=== PATIENT | male | born 1950 | race Caucasian/White ===

== ENCOUNTER 2016-11-18 08:00 | Outpatient (CLI) | payer MEDICARE, BC, OTHER | END 2016-11-18 08:01 | disposition home or self-care (01) | DX: E78.5 Hyperlipidemia, unspecified (principal); Z20.828 Contact with and (suspected) exposure to other viral communicable diseases ==

== ENCOUNTER 2018-03-01 08:27 | Day surgery (SDC) | payer MEDICARE, BC, OTHER ==
[2018-03-01] MEDS: LACTATED RINGERS 1,000 ML IV ONE (09:03)
[2018-03-01 10:30] VITALS: BP 103/67
[2018-03-01] MEDS ORDERED: MIDAZOLAM 2 MG/2 ML VIAL IVP ONE (10:30)
[2018-03-01] MEDS ORDERED: fentaNYL 250 MCG/5 ML VIAL IVP ONE (10:30)
== END 2018-03-01 08:28 | disposition home or self-care (01) ==
LOC: SDS 08:27
PROVIDERS: ATTEND Surgery
PROC: 0DBL8ZX Excision of Transverse Colon, Via Natural or Artificial Opening Endoscopic, Diagnostic (ICD-10-PCS; 2018-03-01)
PROC: 0DBP8ZX Excision of Rectum, Via Natural or Artificial Opening Endoscopic, Diagnostic (ICD-10-PCS; principal; 2018-03-01 09:45)
DX: Z12.11 Encounter for screening for malignant neoplasm of colon (principal); D12.3 Benign neoplasm of transverse colon; K62.1 Rectal polyp; J45.909 Unspecified asthma, uncomplicated; E78.5 Hyperlipidemia, unspecified; Z87.891 Personal history of nicotine dependence
CPT/HCPCS: 45380; J3010; J7120; 88305

== ENCOUNTER 2018-04-18 11:37 | Outpatient (CLI) | payer MEDICARE, BC, OTHER ==
--- NOTE | 2018-04-18 12:29 | XRAY Report ---
TWO VIEW CHEST: 04/18/2018 CLINICAL INDICATION: Cough. COMPARISON: 02/17/2008. FINDINGS: Frontal and lateral views of the chest demonstrate a normal cardiac silhouette. The lungs are clear. No effusion or pneumothorax is present. IMPRESSION: NORMAL CHEST, UNCHANGED. TD: 04/18/2018 12:00
== END 2018-04-18 11:38 | disposition home or self-care (01) ==
LOC: DI 11:37
PROVIDERS: ATTEND Internal Medicine
DX: R05 Cough (principal)
CPT/HCPCS: 71046

== ENCOUNTER 2020-01-12 10:43 | Emergency (ER) | payer MEDICARE, BC, OTHER ==
[2020-01-12] MEDS ORDERED: ONDANSETRON 4 MG/2 ML VIAL IVP STA (12:26)
[2020-01-12] MEDS ORDERED: KETOROLAC 30 MG/ML VIAL IVP STA (12:26)
[2020-01-12] MEDS ORDERED: HYDROmorphone 1 MG/ML SYRINGE IVP STA ×2 (12:26→14:57)
--- NOTE | 2020-01-12 12:29 | ED Physician Documentation ---
PD HPI HEENT - Stated complaint Stated Complaint: HEAD,NECK,LT SHOULDER PX - Chief complaint Chief Complaint: Heent - History obtained from History obtained from: Patient - History of Present Illness Timing - onset: Other (4 days now he has had a swollen lymph node in the neck. He saw his primary care physician who put him on Keflex. Subsequent to that about 2 days ago he is developed severe bilateral posterior neck pain that is excruciating at rest and even worse with any motion. It is triggered by both flexion and extension as well as rotation in either direction. He is never had anything like this before. He denies fevers, chills, fatigue. Denies weakness, numbness, or tingling in the arms or legs.) Review of Systems Ten Systems: 10 systems reviewed and negative Constitutional: denies: Fever, Chills Cardiac: denies: Chest pain / pressure, Palpitations Respiratory: denies: Dyspnea, Cough GI: denies: Abdominal Pain, Nausea, Vomiting PD PAST MEDICAL HISTORY - Past Medical History Past Medical History: Yes Cardiovascular: Murmur Respiratory: Other Endocrine/Autoimmune: None GI: None : None HEENT: Chronic vision loss, Other Psych: Claustrophobia Musculoskeletal: Gout Derm: Other - Past Surgical History Past Surgical History: Yes General: Colonoscopy, Other - Present Medications Home Medications: Ambulatory Orders Medication Instructions Recorded Confirmed Timolol [Betimol] 1 drop EACHEYE DAILY 05/06/16 03/01/18 Cyclobenzaprine [Flexeril] 10 mg PO TID PRN #20 tablet 01/12/20 Fluticasone Propion/Salmeterol 1 each IH 01/12/20 [Wixela 100-50 Inhub] Hydrocodone/Acetaminophen 1 - 2 each PO Q6H PRN #20 tablet 01/12/20 [Hydrocodon-Acetaminophen 5-325] - Allergies Allergies/Adverse Reactions: Allergies Allergy/AdvReac Type Severity Reaction Status Date / Time No Known Drug Allergies Allergy Verified 01/12/20 10:51 - Social History Does the pt smoke?: No Smoking Status: Never smoker Does the pt drink ETOH?: Yes Does the pt have substance abuse?: No PD ED PE NORMAL - Vitals Vital signs reviewed: Yes - General General: Alert and oriented X 3, Other (He appears uncomfortable and cannot move his neck at all) - HEENT HEENT: PERRL, EOMI, Other (Mildly tender left anterior neck lymph node) - Neck Neck: Other (No midline spinal tenderness, he is tender over the left sternocleidomastoid) - Cardiac Cardiac: RRR, No murmur - Respiratory Respiratory: No respiratory distress, Clear bilaterally - Abdomen Abdomen: Non tender - Back Back: No CVA TTP, No spinal TTP - Derm Derm: Normal color, Warm and dry - Extremities Extremities: No edema, No calf tenderness / cord, Other (The patient has equal and normal Achilles and patellar reflexes bilaterally. Normal sensation in all areas of the legs. Patient denies saddle anesthesia. 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, No motor deficit, No sensory deficit, Normal speech Results - Vitals Vitals: Vital Signs - 24 hr 01/12/20 10:47 Temperature 37.1 C Heart Rate 77 Respiratory 18 Rate Blood Pressure 150/100 H O2 Saturation 98 Oxygen O2 Source Room air - Labs Labs: Laboratory Tests 01/12/20 01/12/20 01/12/20 12:48 12:48 12:48 WBC 10.7 RBC 4.40 L Hgb 13.8 L Hct 41.4 L MCV 94.1 H MCH 31.4 H MCHC 33.3 RDW 12.5 Plt Count 231 MPV 9.5 Neut # (Auto) 9.0 H Lymph # (Auto) 0.7 L [place] # (Auto) 0.8 Eos # (Auto) 0.1 Baso # (Auto) 0.0 Absolute Nucleated RBC 0.00 Nucleated RBC % 0.0 ESR 25 H Sodium 139 Potassium 4.0 Chloride 104 Carbon Dioxide 26 Anion Gap 9.0 BUN 12 Creatinine 0.7 Estimated GFR (MDRD) 111 Glucose 122 H Calcium 8.6 Total Bilirubin 1.5 H AST 44 H ALT 59 Alkaline Phosphatase 121 C-Reactive Protein 13.5 H Total Protein 7.4 Albumin 3.9 Globulin 3.5 Albumin/Globulin Ratio 1.1 Lipase 25 PD MEDICAL DECISION MAKING - ED course ED course: 69-year-old gentleman with what seems like a neck spasm. He did have significant improvement with meds here on reexamination he was thoroughly tender over the left sternocleidomastoid. We discussed a lumbar puncture but after discussion and risks edification patient declines which is not unreasonable from my perspective, the risk seems very low especially without fever etc. Departure - Departure Disposition: 01 Home, Self Care Clinical Impression: Neck muscle spasm Headache Qualifiers: Headache type: unspecified Headache chronicity pattern: acute headache Intractability: not intractable Qualified Code(s): R51 - Headache Condition: Good Record reviewed to determine appropriate education?: Yes Instructions: ED Cephalgia Unspecified, ED Spasm Neck No Injury Prescriptions: Cyclobenzaprine [Flexeril] 10 mg PO TID PRN #20 tablet PRN Reason: Spasms Hydrocodone/Acetaminophen [Hydrocodon-Acetaminophen 5-325] 1 - 2 each PO Q6H PRN #20 tablet PRN Reason: pain Comments: Call your doctor to arrange a follow-up appointment, make the next available appointment. In the interim, return anytime if worse or if new symptoms develop. Talk with Dr Erickson about physical therapy.
[2020-01-12 13:05] LABS: BASOPHILS % (AUTO) 0.4 %; EOSINOPHILS # (AUTO) 0.1 10^3/uL (0.0-0.7); EOSINOPHILS % (AUTO) 0.5 %; HGB - HEMOGLOBIN 13.8 g/dL (14.0-18.0); LYMPHOCYTES # (AUTO) 0.7 10^3/uL (1.5-3.5); LYMPHOCYTES % (AUTO) 6.7 %; MEAN CORPUSCULAR HEMOGLOBIN 31.4 pg (27.0-31.0); MEAN CORPUSCULAR HGB CONC 33.3 g/dL (32.0-36.0); MEAN CORPUSCULAR VOLUME 94.1 fL (80.0-94.0); MEAN PLATELET VOLUME 9.5 fL (7.4-11.4); MONOCYTES # (AUTO) 0.8 10^3/uL (0.0-1.0); MONOCYTES % (AUTO) 7.6 %; NEUTROPHILS % (AUTO) 84.2 %; PLT - PLATELET COUNT 231 10^3/uL (130-450); RED CELL DISTRIBUTION WIDTH 12.5 % (12.0-15.0); WHITE BLOOD COUNT 10.7 x10^3/uL (4.8-10.8)
[2020-01-12 13:25] LABS: ALBUMIN 3.9 g/dL (3.2-5.5); ALBUMIN/GLOBULIN RATIO 1.1 (1.0-2.2); BILIRUBIN,TOTAL 1.5 mg/dL (0.2-1.0); CALCIUM 8.6 mg/dL (8.5-10.3); CREATININE 0.7 mg/dL (0.6-1.2); CRP - C-REACTIVE PROTEIN 13.5 mg/dL (0-1.0); TOTAL PROTEIN 7.4 g/dL (6.7-8.2)
--- NOTE | 2020-01-12 14:44 | CT Report ---
Reason: headache/neck pain Procedure Date: 01/12/2020 Accession Number: [id number] / [id number] Procedure: CT - HEAD WO CPT Code: Final Report FULL RESULT: EXAM: CT HEAD EXAM DATE: 01/12/2020 01:11 PM. CLINICAL HISTORY: Headache/neck pain. COMPARISON: None. TECHNIQUE: Multiaxial CT images were obtained from the foramen magnum to the vertex. Reformats: Sagittal and coronal. IV contrast: None. In accordance with CT protocol optimization, one or more of the following dose reduction techniques were utilized for this exam: automated exposure control, adjustment of mA and/or KV based on patient size, or use of iterative reconstructive technique. FINDINGS: Parenchyma: Bilateral periventricular and subcortical hypoattenuation suggestive of age related microangiopathic changes. No intraparenchymal hemorrhage. No evidence of mass, midline shift, or CT findings of infarction. Shah-white differentiation is distinct. Extraaxial Spaces: Normal for age. No subdural or epidural collections identified. Ventricles: Normal in size and position. Sinuses and Orbits: Imaged paranasal sinuses, orbits, and mastoids show no significant abnormality. Bones: No evidence of fracture or calvarial defect. Other: None. IMPRESSION: No significant intracranial abnormality. RADIA
--- NOTE | 2020-01-12 14:51 | CT Report ---
Reason: headache/neck pain Procedure Date: 01/12/2020 Accession Number: [id number] / [id number] Procedure: CT - CERVICAL SPINE WO CPT Code: Final Report FULL RESULT: EXAM:CT CERVICAL SPINE WITHOUT CONTRAST DATE: 01/12/2020 01:11 PM. HISTORY: Headache/neck pain. COMPARISONS: None. TECHNIQUE: Thin-section axial images were acquired of the cervical spine without contrast. Post-processing: Coronal and sagittal reformats. Other: None. In accordance with CT protocol optimization, one or more of the following dose reduction techniques were utilized for this exam: automated exposure control, adjustment of mA and/or KV based on patient size, or use of iterative reconstructive technique. FINDINGS: Alignment: No scoliosis or spondylolisthesis. Loss of disk height with endplate sclerosis at C5-C6 with posterior disk osteophyte complex. Bones: No fracture or bone lesion. Moderate bilateral facet arthropathy predominantly at C2-C3, C3-C4 and C4-C5 levels. Mild to moderate bilateral neural foraminal stenosis at C2-C3 and C3-C4 Musculature: Normal. No fatty atrophy. Other: The paravertebral and prevertebral soft tissues are unremarkable. The lung apices are clear. IMPRESSION: No acute displaced fracture or malalignment. Degenerative changes with facet arthropathy and suggestion of mild to moderate bilateral neural foraminal stenosis at C2-C3 and C3-C4. RADIA
[2020-01-12 15:12] VITALS: BP 140/65
== END 2020-01-12 15:33 | disposition home or self-care (01) ==
LOC: ED 10:43
DX: M62.838 Other muscle spasm (principal); R51 Headache
CPT/HCPCS: 36415; 70450; 72125; 80053; 83690; 85025; 85651; 86140; 96374; 96376; 99284; J1170

== ENCOUNTER 2020-01-13 08:17 | Outpatient (CLI) | payer MEDICARE, BC, OTHER | END 2020-01-13 08:18 | disposition critical access hospital (66) | LOC: EMS 08:17 | PROVIDERS: ATTEND Surgery | DX: M54.2 Cervicalgia (principal) | CPT/HCPCS: A0425; A0429 ==

== ENCOUNTER 2020-01-13 08:36 | Emergency (ER) | payer MEDICARE, BC, OTHER ==
[2020-01-13] MEDS ORDERED: KETOROLAC 30 MG/ML VIAL IVP STA (09:27)
[2020-01-13] MEDS ORDERED: DEXAMETHASONE 10 MG/ML VIAL IVP STA (09:27)
[2020-01-13] MEDS ORDERED: SODIUM CHLORIDE 0.9% 1,000 ML IV ONE (09:27)
--- NOTE | 2020-01-13 09:31 | ED Physician Documentation ---
PD HPI NECK PAIN - Stated complaint Stated Complaint: NECK PX - Chief complaint Chief Complaint: Heent - History obtained from History obtained from: Patient, EMS - History of Present Illness Timing - onset: How many days ago (3) Timing - duration: Days (3) Timing - details: Gradual onset, Still present Location: Lower, Left Quality: Pain, Spasm, Sharp Associated symptoms: No: Fever, Weakness, Numbness, Incontinent of urine, Unable to urinate, Hematuria, Incontinent of stool Improves with: Rest, Position, Meds Worsened by: Movement Similar symptoms before: Diagnosis (eosinophilic facciitis) Recently seen: Emergency Dept - Additional information Additional information: 69-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 2 days later he began to develop some pain in his neck this became excruciating he was seen in the emergency department here yesterday and given some Dilaudid with marked improvement in his pain. 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 They did discuss potential for a lumbar puncture and this was thought to be of low benefit. The patient has had a prior spinal headache and he states this is dissimilar to that. He has a lot of tenderness to the neck itself. He does not have much in the way of swelling. He does not feel that the lymph node has gone down much since he has started the antibiotic. He does state that he has had this eosinophilic fasciitis he has previously had to be on some prednisone when it affected his legs. His CRP and ESR were elevated yesterday. Review of Systems Constitutional: denies: Fever Eyes: denies: Decreased vision Ears: denies: Ear pain Nose: denies: Rhinorrhea / runny nose, Congestion Throat: denies: Sore throat Cardiac: denies: Chest pain / pressure, Palpitations Respiratory: denies: Dyspnea, Cough GI: denies: Abdominal Pain, Nausea, Vomiting : denies: Dysuria, Frequency Skin: denies: Rash Musculoskeletal: reports: Neck pain, Back pain Neurologic: denies: Generalized weakness, Focal weakness, Numbness PD PAST MEDICAL HISTORY - Past Medical History Cardiovascular: Murmur Respiratory: Other Neuro: None Endocrine/Autoimmune: None GI: None : None HEENT: Chronic vision loss, Other Psych: Claustrophobia Musculoskeletal: Gout Derm: Other - Past Surgical History Past Surgical History: Yes General: Colonoscopy, Other - Present Medications Home Medications: Ambulatory Orders Medication Instructions Recorded Confirmed Timolol [Betimol] 1 drop EACHEYE DAILY 05/06/16 03/01/18 Cyclobenzaprine [Flexeril] 10 mg PO TID PRN #20 tablet 01/12/20 Fluticasone Propion/Salmeterol 1 each IH 01/12/20 [Wixela 100-50 Inhub] Hydrocodone/Acetaminophen 1 - 2 each PO Q6H PRN #20 tablet 01/12/20 [Hydrocodon-Acetaminophen 5-325] cephALEXin [Keflex] 250 mg PO BID 01/13/20 01/13/20 predniSONE [Deltasone] 10 mg PO ONCE #42 tablet 01/13/20 - Allergies Allergies/Adverse Reactions: Allergies Allergy/AdvReac Type Severity Reaction Status Date / Time No Known Drug Allergies Allergy Verified 01/12/20 10:51 - Social History Does the pt smoke?: No Smoking Status: Never smoker Does the pt drink ETOH?: Yes Does the pt have substance abuse?: No PD ED PE NORMAL - Vitals Vital signs reviewed: Yes (normal ) - General General: Alert and oriented X 3, Well developed/nourished, Other (The 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 He has pain to touch the muscles to the neck into the skin to the neck as well as his scalp.) - HEENT HEENT: Atraumatic, PERRL, EOMI, Ears normal, Moist mucous membranes, Pharynx benign, Dentition benign - Neck Neck: Other (The patient is able to move his neck but with any movement he has wincing pain. 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, No motor deficit, No sensory deficit, Normal speech Eye Opening: Spontaneous Motor: Obeys Commands Verbal: Oriented GCS Score: 15 - Psych Psych: Normal mood Results - Vitals Vitals: Vital Signs - 24 hr 01/13/20 08:47 Temperature 36.6 C Heart Rate 72 Respiratory 22 Rate Blood Pressure 128/53 L O2 Saturation 95 Oxygen O2 Source Room air - Labs Labs: Laboratory Tests 01/13/20 01/13/20 01/13/20 10:00 10:00 10:00 WBC 9.6 RBC 4.05 L Hgb 12.5 L Hct 38.7 L MCV 95.6 H MCH 30.9 MCHC 32.3 RDW 12.6 Plt Count 229 MPV 9.7 Neut # (Auto) 7.4 H Lymph # (Auto) 1.0 L [place] # (Auto) 1.1 H Eos # (Auto) 0.1 Baso # (Auto) 0.0 Absolute Nucleated RBC 0.00 Nucleated RBC % 0.0 ESR Sodium 134 L Potassium 3.8 Chloride 99 L Carbon Dioxide 26 Anion Gap 9.0 BUN 15 Creatinine 0.8 Estimated GFR (MDRD) 96 Glucose 139 H Lactic Acid 1.0 Calcium 8.3 L Total Bilirubin 1.1 H AST 26 ALT 46 Alkaline Phosphatase 114 C-Reactive Protein Total Protein 7.1 Albumin 3.7 Globulin 3.4 Albumin/Globulin Ratio 1.1 Lipase 27 01/13/20 01/13/20 10:00 10:00 WBC RBC Hgb Hct MCV MCH MCHC RDW Plt Count MPV Neut # (Auto) Lymph # (Auto) [place] # (Auto) Eos # (Auto) Baso # (Auto) Absolute Nucleated RBC Nucleated RBC % ESR 30 H Sodium Potassium Chloride Carbon Dioxide Anion Gap BUN Creatinine Estimated GFR (MDRD) Glucose Lactic Acid Calcium Total Bilirubin AST ALT Alkaline Phosphatase C-Reactive Protein 18.1 H Total Protein Albumin Globulin Albumin/Globulin Ratio Lipase PD MEDICAL DECISION MAKING - ED course Complexity details: considered differential, d/w patient ED course: 69-year-old male with history of eosinophilic fasciitis has developed significant neck pain and he relates a prior history of having had 2 episodes previously requiring prednisone. He has had other episodes of eosinophilia related to excessive use of his muscles and today his inflammatory markers are more elevated than previously and he is treated here in the emergency department with intravenous dexamethasone and Toradol. He has improvement in his pain.He is able to move his neck freely after administration of Toradol and Decadron. He was administered a liter of saline for hydration as well. Departure - Departure Disposition: 01 Home, Self Care Clinical Impression: Eosinophilic fasciitis Condition: Stable Instructions: ED Neck Pain No Trauma Follow-Up: Mark Erickson MD [Primary Care Provider] - Prescriptions: predniSONE [Deltasone] 10 mg PO ONCE #42 tablet
[2020-01-13 10:33] LABS: BASOPHILS % (AUTO) 0.4 %; EOSINOPHILS # (AUTO) 0.1 10^3/uL (0.0-0.7); HGB - HEMOGLOBIN 12.5 g/dL (14.0-18.0); MEAN CORPUSCULAR HEMOGLOBIN 30.9 pg (27.0-31.0); MEAN CORPUSCULAR HGB CONC 32.3 g/dL (32.0-36.0); MEAN CORPUSCULAR VOLUME 95.6 fL (80.0-94.0); MEAN PLATELET VOLUME 9.7 fL (7.4-11.4); MONOCYTES # (AUTO) 1.1 10^3/uL (0.0-1.0); MONOCYTES % (AUTO) 11.1 %; NEUTROPHILS # (AUTO) 7.4 10^3/uL (1.5-6.6); NEUTROPHILS % (AUTO) 77.1 %; PLT - PLATELET COUNT 229 10^3/uL (130-450); RED BLOOD COUNT 4.05 10^6/uL (4.70-6.10); RED CELL DISTRIBUTION WIDTH 12.6 % (12.0-15.0); WHITE BLOOD COUNT 9.6 x10^3/uL (4.8-10.8)
[2020-01-13 10:43] LABS: ALBUMIN 3.7 g/dL (3.2-5.5); ALBUMIN/GLOBULIN RATIO 1.1 (1.0-2.2); BILIRUBIN,TOTAL 1.1 mg/dL (0.2-1.0); CALCIUM 8.3 mg/dL (8.5-10.3); CREATININE 0.8 mg/dL (0.6-1.2); TOTAL PROTEIN 7.1 g/dL (6.7-8.2)
[2020-01-13 12:35] VITALS: BP 131/63
== END 2020-01-13 12:35 | disposition home or self-care (01) ==
LOC: EDUNIT# → ED 08:36
DX: M35.4 Diffuse (eosinophilic) fasciitis (principal)
CPT/HCPCS: 36415; 80053; 83605; 83690; 85025; 85651; 86140; 96361; 96374; 99284

== ENCOUNTER 2020-08-04 11:22 | Emergency (ER) | payer MEDICARE, BC, OTHER ==
[2020-08-04] MEDS ORDERED: BUFFERED LIDOCAINE 10 ML SYRINGE SUBQ STA (12:16)
[2020-08-04] MEDS ORDERED: TETANUS/DIPHTHERIA/PERTUSSIS 0.5 ML SYRINGE IM ONE (12:16)
--- NOTE | 2020-08-04 12:18 | ED Physician Documentation ---
PD HPI UPPER EXT INJURY - Stated complaint Stated Complaint: LT HAND LAC - Chief complaint Chief Complaint: Laceration - History obtained from History obtained from: Patient (70 yo M with unknown tetanus status cut his left, dominant hand with a knife at home on accident just prior to arrival.) Review of Systems Constitutional: reports: Reviewed and negative Eyes: reports: Reviewed and negative Ears: reports: Reviewed and negative PD PAST MEDICAL HISTORY - Past Medical History Cardiovascular: Murmur Respiratory: Other Neuro: None Endocrine/Autoimmune: None GI: None : None HEENT: Chronic vision loss, Other Psych: Claustrophobia Musculoskeletal: Gout Derm: Other - Past Surgical History Past Surgical History: Yes General: Colonoscopy, Other - Present Medications Home Medications: Ambulatory Orders Medication Instructions Recorded Confirmed Timolol [Betimol] 1 drop EACHEYE DAILY 05/06/16 03/01/18 Cyclobenzaprine [Flexeril] 10 mg PO TID PRN #20 tablet 01/12/20 Fluticasone Propion/Salmeterol 1 each IH 01/12/20 [Wixela 100-50 Inhub] Hydrocodone/Acetaminophen 1 - 2 each PO Q6H PRN #20 tablet 01/12/20 [Hydrocodon-Acetaminophen 5-325] cephALEXin [Keflex] 250 mg PO BID 01/13/20 01/13/20 predniSONE [Deltasone] 10 mg PO ONCE #42 tablet 01/13/20 - Allergies Allergies/Adverse Reactions: Allergies Allergy/AdvReac Type Severity Reaction Status Date / Time No Known Drug Allergies Allergy Verified 08/04/20 11:50 - Social History Does the pt smoke?: No Smoking Status: Never smoker Does the pt drink ETOH?: Yes Does the pt have substance abuse?: No PD ED PE NORMAL - Vitals Vital signs reviewed: Yes - General General: Alert and oriented X 3, No acute distress - Extremities Extremities: Other (Is a 3 cm laceration that is just in the subcutaneous tissue on the dorsum of the left hand. It basically kind of comes across the second MCP on the radial side. There is no distal neurovascular compromise.) - Neuro Neuro: Alert and oriented X 3, Normal speech Results - Vitals Vitals: Vital Signs - 24 hr 08/04/20 11:50 Temperature 36.2 C L Heart Rate 62 Respiratory 16 Rate Blood Pressure 154/76 H O2 Saturation 97 Oxygen O2 Source Room air Procedures - Laceration (location) L hand Length in cm: 3 Wound type: Linear, Superficial, Into subcut fat Neurovascular status: Sensory intact, Motor intact, Vascular intact Tendon involvement: Tendon intact Anesthesia: Lidocaine 1%, With bicarb Wound Preparation: Irrigated copiously NS Skin layer closure: Nylon, Interrupted, Size #-0 - enter number (4-0), Sutures - enter # (7) Other: Patient tolerated well, No complications, Neurovascular intact, Tetanus booster given Complexity: Simple Departure - Departure Disposition: 01 Home, Self Care Clinical Impression: Laceration of left hand Qualifiers: Encounter type: initial encounter Foreign body presence: without foreign body Qualified Code(s): S61.412A - Laceration without foreign body of left hand, initial encounter Condition: Good Record reviewed to determine appropriate education?: Yes Instructions: ED Laceration Hand Comments: Come back for any signs of infection which would include: Redness, swelling, drainage, increased pain, or fevers. You can wash it soap and water. Keep it covered and moist with bacitracin ointm ent which is available over the counter; avoid neosporin. Follow-up with your physician in about 14 days for suture removal.
[2020-08-04 12:44] VITALS: BP 147/77
== END 2020-08-04 12:46 | disposition home or self-care (01) ==
LOC: ED 11:22
DX: S61.412A Laceration without foreign body of left hand, initial encounter (principal); W26.0XXA Contact with knife, initial encounter; Y92.009 Unspecified place in unspecified non-institutional (private) residence as the place of occurrence of the external cause; Z23 Encounter for immunization
CPT/HCPCS: 12001; 90471; 99282; 99283

== ENCOUNTER 2021-07-12 12:45 | Outpatient (CLI) | payer MEDICARE, BC, OTHER | END 2021-07-12 12:46 | disposition critical access hospital (66) | LOC: EMS 12:45 | DX: Z04.3 Encounter for examination and observation following other accident (principal); M54.5 Low back pain | CPT/HCPCS: A0425; A0427 ==

== ENCOUNTER 2021-07-12 13:09 | Emergency (ER) | payer MEDICARE, BC, OTHER ==
[2021-07-12] MEDS ORDERED: KETOROLAC 15 MG/ML VIAL IVP STA (13:21)
[2021-07-12] MEDS ORDERED: HYDROmorphone 1 MG/ML CARPUJECT IVP STA (13:21)
--- NOTE | 2021-07-12 13:26 | ED Physician Documentation ---
PD HPI MAJOR TRAUMA - Stated complaint Stated Complaint: GLF/BACK PX - Chief complaint Chief Complaint: Trauma Ch/Bk - History obtained from History obtained from: Patient, EMS - Additional information Additional information: Pretty healthy 71-year-old gentleman was working out in his yard, he stepped backwards accidentally onto a counter pocket trimmer and went down onto his tailbone with severe pain of the mid to upper lumbar spine and difficulty functioning because of it. No other injuries. No weakness, numbness, tingling, saddle anesthesia. Received 2 mg of morphine on route with some relief. Review of Systems Ten Systems: 10 systems reviewed and negative Constitutional: reports: Reviewed and negative Eyes: reports: Reviewed and negative Ears: reports: Reviewed and negative Nose: reports: Reviewed and negative Throat: reports: Reviewed and negative Cardiac: reports: Reviewed and negative Respiratory: reports: Reviewed and negative PD PAST MEDICAL HISTORY - Past Medical History Cardiovascular: Murmur Respiratory: Other Neuro: None Endocrine/Autoimmune: None GI: None : None HEENT: Chronic vision loss, Other Psych: Claustrophobia Musculoskeletal: Gout Derm: Other - Past Surgical History Past Surgical History: Yes General: Colonoscopy, Other - Present Medications Home Medications: Ambulatory Orders Medication Instructions Recorded Confirmed Timolol [Betimol] 1 drop EACHEYE DAILY 05/06/16 07/12/21 Oxycodone HCl/Acetaminophen 1 - 2 each PO Q6H PRN #30 tablet 07/12/21 [Percocet 5-325 mg Tablet] - Allergies Allergies/Adverse Reactions: Allergies Allergy/AdvReac Type Severity Reaction Status Date / Time No Known Drug Allergies Allergy Verified 08/04/20 11:50 - Social History Does the pt smoke?: No Smoking Status: Never smoker Does the pt drink ETOH?: Yes Does the pt have substance abuse?: No PD ED PE NORMAL - Vitals Vital signs reviewed: Yes - General General: Alert and oriented X 3, No acute distress - Neck Neck: Supple, no meningeal sign, No bony TTP - Back Back: Other (Reproducible but modest tenderness of the mid to upper lumbar spine especially on the left side. Severe difficulty with motion due to pain.) - Extremities Extremities: Other (The patient has equal and normal Achilles and patellar reflexes bilaterally. Normal sensation in all areas of the legs. Patient denies saddle anesthesia. Normal strength in flexion-extension at the ankles, knees, and flexion of the hips.) - Neuro Neuro: Alert and oriented X 3, Normal speech Results - Vitals Vitals: Vital Signs - 24 hr 07/12/21 07/12/21 13:14 14:09 Temperature 97 C H 97.3 C H Heart Rate 49 L 46 L Respiratory 14 16 Rate Blood Pressure 155/60 H 165/68 H O2 Saturation 97 100 Oxygen O2 Source Room air - Rads (name of study) CT L SPine Radiology: EMP read contemporaneously (Multilevel DJD and an old compression fracture T12 without obvious acute trauma.) PD MEDICAL DECISION MAKING - ED course ED course: After the administration of some Toradol and Dilaudid here he was doing much better, and ambulatory without issue. Departure - Departure Disposition: 01 Home, Self Care Clinical Impression: Fall from ground level, Back spasm Condition: Good Record reviewed to determine appropriate education?: Yes Instructions: ED Low Back Pain Injury Prescriptions: Oxycodone HCl/Acetaminophen [Percocet 5-325 mg Tablet] 1 - 2 each PO Q6H PRN #30 tablet PRN Reason: pain Comments: Thankfully, as discussed there is no evidence of fracture in the lumbar spine. Return for new or worsening symptoms or if other injuries become apparent. Follow-up with your doctor next week for recheck. Prescription sent electronically to [facility] in [place]. I am prescribing a short course of narcotic pain medication for you. These are potentially dangerous and addictive medications that should be used carefully. These medications may constipate you. Take an [id number] stool softener (docusate) twice daily with plenty of water while taking these medications. If you go 24 hours without a bowel movement, take [id number] miralax, per package instructions. Do not drink or drive while taking these medications. If you received narcotic or sedating medications while in the emergency department, do not drive for 24 hours. Store this medication in a safe, secure place and out of reach of children. It is a violation of federal law to give or sell this medication to another person or to use in a manner other than prescribed. The ED will not refill narcotic prescriptions, including prescriptions lost or stolen. To dispose of unwanted medications: 1. [facility] at [address] in [place] has a medication drop box. They accept prescription medications (in pill form) Wednesday through Wednesday 9:00 a.m. to 5:00 p.m. 2. The [facility] [employer] accepts prescription medications (in pill form only) for disposal year round. Call for more information. 3. Contact the [facility] for the next [facility] sponsored prescription drug collection event. , [phone], or [phone]; Note that many narcotic pain relievers also contain Tylenol/acetaminophen. Please ensure that your total dose of acetaminophen from all sources does not exceed 3 g (3000 mg) per day.
[2021-07-12 14:10] VITALS: BP 165/68
--- NOTE | 2021-07-12 14:11 | CT Report ---
PROCEDURE: LUMBAR SPINE WO INDICATIONS: back inj TECHNIQUE: Noncontrast 3 mm thick sections acquired from the T12 level to the sacrum. Sagittal and coronal refo rmats were constructed. For radiation dose reduction, the following was used: automated exposure co ntrol, adjustment of mA and/or kV according to patient size. COMPARISON: None. FINDINGS: Image quality: Excellent. Bones: There is normal bony alignment. There are moderate appearing anterior wedge deformity seen o f T12, with 20% loss of height anteriorly. No acute vertebral body compression fractures. No suspici ous lytic or blastic bony lesions. Central spinal caliber is of normal overall caliber. No pars def ects. T12-L1: Normal in appearance. L1-L2: Normal in appearance. L2-L3: Moderate loss of disc height is seen. Endplate irregularity and sclerosis can be seen. M oderate disc bulge is seen at this level. There is moderate right-sided and mild left-sided neurofor aminal narrowing seen. Moderate central canal narrowing is seen. L3-L4: The disc height is well-preserved. At least moderate disc bulge is seen. Mild to moderate fa cet hypertrophy can be seen. There is mild left-sided and moderate right-sided neuroforaminal narrowi ng seen. Moderate to severe central canal narrowing is seen. L4-L5: The disc height is well-preserved. At least moderate disc bulge is seen, with a central disc protrusion. Moderate facet hypertrophy is seen. Associated hypertrophy of the ligamentum flavum ca n be seen. There is mild to moderate right-sided and at least moderate left-sided neuroforaminal sheila rowing seen. Moderate to severe central canal narrowing is seen, as on series 3 image 68. L5-S1: Moderate loss of disc height is seen at this level. Endplate irregularity and sclerosis can be seen. Vacuum disc phenomenon is seen at this level. There is moderate left-sided and mild-to-m oderate right-sided neuroforaminal narrowing seen. Mild central canal narrowing is seen. Soft tissues: No retroperitoneal masses or hematomas. Visualized aorta is normal in caliber. Ather osclerotic calcification is seen. Diverticulosis can be seen, without adarsh findings of active divert iculitis. IMPRESSION: No adarsh, acute abnormality is seen on this study. There is a remote T12 anterior wedge deformity. Multiple levels of relatively prominent lumbar spine degenerative change can be seen. If it would be helpful for clinical management decision making, please consider a dedicated, schedule d lumbar MRI for further evaluation (assuming that there is no contraindication). Reviewed by: Garland Guerrero MD on 07/12/2021 1:10 PM [facility] Approved by: Garland Guerrero MD on 07/12/2021 1:10 PM [facility] Station ID: [id number]
== END 2021-07-12 16:03 | disposition home or self-care (01) ==
LOC: EDUNIT# → ED 13:09
DX: M62.830 Muscle spasm of back (principal); W01.0XXA Fall on same level from slipping, tripping and stumbling without subsequent striking against object, initial encounter; Y93.H9 Activity, other involving exterior property and land maintenance, building and construction; Y92.007 Garden or yard of unspecified non-institutional (private) residence as the place of occurrence of the external cause; M51.26 Other intervertebral disc displacement, lumbar region
CPT/HCPCS: 72131; 96374; 96375; 99283; 99284; J1170

== ENCOUNTER 2021-11-08 09:37 | Outpatient (CLI) | payer MEDICARE, BC, OTHER | END 2021-11-08 09:38 | disposition critical access hospital (66) | LOC: EMS 09:37 | DX: R42 Dizziness and giddiness (principal); R11.0 Nausea; R23.1 Pallor | CPT/HCPCS: A0425; A0427 ==

== ENCOUNTER 2021-11-08 09:57 | Emergency (ER) | payer MEDICARE, BC, OTHER ==
--- NOTE | 2021-11-08 10:30 | ED Physician Documentation ---
History of Present Illness - Stated complaint Stated Complaint: DIZZINESS/VOMITING - Chief complaint Chief Complaint: Cardiac - History obtained from History obtained from: Patient - Additonal information Additional information: 71 y/o male with a history of eosinophilic fascititis has developed diaphroresis and near syncope beginning at about 4am. He has had sweats and repeated light headedness. He does not believe he had any syncope. He has had some left shoulder pain yesterday evening that radiated to his scapula on the left. He has not had these symptoms today. He eventually called 911 with persistent dizziness, diaphoresis. PD PAST MEDICAL HISTORY - Past Medical History Past Medical History: Yes Cardiovascular: Murmur Respiratory: Other Neuro: None Endocrine/Autoimmune: None GI: None : None HEENT: Chronic vision loss, Other Psych: Claustrophobia Musculoskeletal: Gout Derm: Other - Past Surgical History Past Surgical History: Yes General: Colonoscopy, Other - Present Medications Home Medications: Ambulatory Orders Medication Instructions Recorded Confirmed Timolol [Betimol] 1 drop EACHEYE DAILY 05/06/16 11/08/21 Meclizine HCl [Motion Sickness] 25 mg PO Q6HR PRN #20 tablet 11/08/21 - Allergies Allergies/Adverse Reactions: Allergies Allergy/AdvReac Type Severity Reaction Status Date / Time No Known Drug Allergies Allergy Verified 11/08/21 10:09 - Social History Does the pt smoke?: No Smoking Status: Never smoker Does the pt drink ETOH?: Yes Does the pt have substance abuse?: No - Immunizations Immunizations are current?: Yes PD ED PE NORMAL - Vitals Vital signs reviewed: Yes (bradycardic and hypertensive ) - General General: Alert and oriented X 3, No acute distress, Well developed/nourished - HEENT HEENT: Atraumatic, PERRL, EOMI, Ears normal, Other (nystagmus bilat 1-2 beats) - Neck Neck: Supple, no meningeal sign, No bony TTP - Cardiac Cardiac: RRR, No murmur - Respiratory Respiratory: No respiratory distress, Clear bilaterally - Abdomen Abdomen: Normal bowel sounds, Soft, Non tender, Non distended, No organomegaly - Back Back: No CVA TTP, No spinal TTP - Derm Derm: Normal color, Warm and dry, No rash - Extremities Extremities: No deformity, No edema - Neuro Neuro: Alert and oriented X 3, bezel cutter 2-12 intact, No motor deficit, No sensory deficit, Normal speech Eye Opening: Spontaneous Motor: Obeys Commands Verbal: Oriented GCS Score: 15 - Psych Psych: Normal mood, Normal affect Results - Vitals Vitals: Vital Signs - 24 hr 11/08/21 11/08/21 11/08/21 10:04 10:08 12:04 Temperature 36.6 C Heart Rate 48 L 52 L 48 L Respiratory 12 19 14 Rate Blood Pressure 187/79 H 187/79 H 162/66 H O2 Saturation 99 96 96 Oxygen O2 Source Room air - EKG (time done) 1016 Rate: Rate (enter#) (47), Abelardo Rhythm: Sinus bradycardia Intervals: Prolonged MN QRS: LVH Ischemia: Q waves Compare to prior EKG: Changed from prior EKG (SPT 05-06-2016 the rate is slower the MN interval is longer. ) Computer interpretation: Agree with computer - Labs Labs: Laboratory Tests 11/08/21 11/08/21 11/08/21 10:40 10:40 10:40 WBC 7.4 RBC 4.73 Hgb 14.3 Hct 44.1 MCV 93.2 MCH 30.2 MCHC 32.4 RDW 12.8 Plt Count 235 MPV 9.4 Neut # (Auto) 5.0 Lymph # (Auto) 1.6 Camp # (Auto) 0.5 Eos # (Auto) 0.2 Baso # (Auto) 0.1 Absolute Nucleated RBC 0.00 Nucleated RBC % 0.0 Sodium 140 Potassium 3.9 Chloride 105 Carbon Dioxide 27 Anion Gap 8.0 BUN 15 Creatinine 0.8 Estimated GFR (MDRD) 95 Glucose 117 H Calcium 8.5 Total Bilirubin 0.5 AST 17 ALT 20 Alkaline Phosphatase 67 Troponin I High Sens 4.1 Total Protein 6.9 Albumin 3.9 Globulin 3.0 Albumin/Globulin Ratio 1.3 Lipase 36 Urine Color Urine Clarity Urine pH Ur Specific [place] Urine Protein Urine Glucose (UA) Urine Ketones Urine Occult Blood Urine Nitrite Urine Bilirubin Urine Urobilinogen Ur Leukocyte Esterase Ur Microscopic Review Urine Culture Comments Nasal Adenovirus (PCR) Nasal B. parapertussis DNA (PCR) Nasal Coronavir 229E PCR Nasal Coronavir HKU1 PCR Nasal Coronavir NL63 PCR Nasal Coronavir OC43 PCR Nasal Enterovir/Rhinovir PCR Nasal Influenza B PCR Nasal Influenza A PCR Nasal Parainfluen 1 PCR Nasal Parainfluen 2 PCR Nasal Parainfluen 3 PCR Nasal Parainfluen 4 PCR Nasal RSV (PCR) Nasal B.pertussis DNA PCR Nasal C.pneumoniae (PCR) Austyn Human Metapneumo PCR Nasal M.pneumoniae (PCR) Nasal SARS-CoV-2 (PCR) 11/08/21 11/08/21 11:24 12:40 WBC RBC Hgb Hct MCV MCH MCHC RDW Plt Count MPV Neut # (Auto) Lymph # (Auto) Camp # (Auto) Eos # (Auto) Baso # (Auto) Absolute Nucleated RBC Nucleated RBC % Sodium Potassium Chloride Carbon Dioxide Anion Gap BUN Creatinine Estimated GFR (MDRD) Glucose Calcium Total Bilirubin AST ALT Alkaline Phosphatase Troponin I High Sens Total Protein Albumin Globulin Albumin/Globulin Ratio Lipase Urine Color YELLOW Urine Clarity CLEAR Urine pH 5.5 Ur Specific [place] 1.020 Urine Protein NEGATIVE Urine Glucose (UA) NEGATIVE Urine Ketones NEGATIVE Urine Occult Blood NEGATIVE Urine Nitrite NEGATIVE Urine Bilirubin NEGATIVE Urine Urobilinogen 0.2 (NORMAL) Ur Leukocyte Esterase NEGATIVE Ur Microscopic Review NOT INDICATED Urine Culture Comments NOT INDICATED Nasal Adenovirus (PCR) NOT DETECTED Nasal B. parapertussis DNA (PCR) NOT DETECTED Nasal Coronavir 229E PCR NOT DETECTED Nasal Coronavir HKU1 PCR NOT DETECTED Nasal Coronavir NL63 PCR NOT DETECTED Nasal Coronavir OC43 PCR NOT DETECTED Nasal Enterovir/Rhinovir PCR NOT DETECTED Nasal Influenza B PCR NOT DETECTED Nasal Influenza A PCR NOT DETECTED Nasal Parainfluen 1 PCR NOT DETECTED Nasal Parainfluen 2 PCR NOT DETECTED Nasal Parainfluen 3 PCR NOT DETECTED Nasal Parainfluen 4 PCR NOT DETECTED Nasal RSV (PCR) NOT DETECTED Nasal B.pertussis DNA PCR NOT DETECTED Nasal C.pneumoniae (PCR) NOT DETECTED Austyn Human Metapneumo PCR NOT DETECTED Nasal M.pneumoniae (PCR) NOT DETECTED Nasal SARS-CoV-2 (PCR) NOT DETECTED - Rads (name of study) chest Radiology: Prelim report reviewed (Impression: Unremarkable portable chest for age. Stable from prior.), EMP read indepedently, See rad report Procedures - IVC sono (time) 1035 Bedside IVC sono: IVC measures (cm) (1.56), IVC collapsed c insp (cm) (0.71), Euvolemia PD MEDICAL DECISION MAKING - ED course Complexity details: reviewed old records, reviewed results, re-evaluated patient, considered differential, d/w patient ED course: 71-year-old male with a history of eosinophilic fasciitis has developed acute dizziness this morning and he has had an episode of vomiting associated with that. He states the dizziness began about 4:00 in the morning when he got up to go to the bathroom. When the dizziness persisted he called 911. He arrives to the ED without symptoms and has a negative work up including normal volume, negative trop and negative COVID. He is road tested and found to have nystagmus with dizziness associated with head movement. He is administered meclizine and decadron. Departure - Departure Disposition: 01 Home, Self Care Clinical Impression: Labyrinthitis Qualifiers: Laterality: unspecified laterality Qualified Code(s): H83.09 - Labyrinthitis, unspecified ear Condition: Stable Instructions: ED Labyrinthitis Follow-Up: Mark Erickson MD [Primary Care Provider] - Prescriptions: Meclizine HCl [Motion Sickness] 25 mg PO Q6HR PRN #20 tablet PRN Reason: Dizziness Comments: Pietro today it looks like you have labyrinthitis or an inflammation of the inner ear ear (the balance mechanism). The meclizine should help with your symptoms and this has been E scribed to [facility] in [place]. There is an exercise called the Joan maneuver and I have provided a sheet that describes how this is done. This can help with the symptoms dramatically.
--- NOTE | 2021-11-08 10:41 | XRAY Report ---
PROCEDURE: Chest 1 View X-Ray INDICATIONS: Chest pain TECHNIQUE: One view of the chest was acquired. COMPARISON: 01/08/2020, 04/18/2018 FINDINGS: Surgical changes and devices: None. Lungs and pleura: No pleural effusions or pneumothorax. Lungs are clear. Mediastinum: Mediastinal contours appear normal. Heart size is normal. Bones and chest wall: No suspicious bony lesions. Age-appropriate degenerative changes are seen. Overlying soft tissues appear unremarkable. IMPRESSION: Unremarkable portable chest for age. Stable from prior. Reviewed by: Garland Guerrero MD on 11/08/2021 9:39 AM [facility] Approved by: Garland Guerrero MD on 11/08/2021 9:39 AM [facility] Station ID: [id number]
[2021-11-08 10:48] LABS: BASOPHILS # (AUTO) 0.1 10^3/uL (0.0-0.1); BASOPHILS % (AUTO) 0.7 %; EOSINOPHILS # (AUTO) 0.2 10^3/uL (0.0-0.7); EOSINOPHILS % (AUTO) 3.1 %; HCT - HEMATOCRIT 44.1 % (42.0-52.0); HGB - HEMOGLOBIN 14.3 g/dL (14.0-18.0); LYMPHOCYTES # (AUTO) 1.6 10^3/uL (1.5-3.5); LYMPHOCYTES % (AUTO) 21.1 %; MEAN CORPUSCULAR HEMOGLOBIN 30.2 pg (27.0-31.0); MEAN CORPUSCULAR HGB CONC 32.4 g/dL (32.0-36.0); MEAN CORPUSCULAR VOLUME 93.2 fL (80.0-94.0); MEAN PLATELET VOLUME 9.4 fL (7.4-11.4); MONOCYTES # (AUTO) 0.5 10^3/uL (0.0-1.0); MONOCYTES % (AUTO) 6.8 %; NEUTROPHILS % (AUTO) 67.9 %; PLT - PLATELET COUNT 235 10^3/uL (130-450); RED BLOOD COUNT 4.73 10^6/uL (4.70-6.10); RED CELL DISTRIBUTION WIDTH 12.8 % (12.0-15.0); WHITE BLOOD COUNT 7.4 x10^3/uL (4.8-10.8)
[2021-11-08 10:59] LABS: ALBUMIN 3.9 g/dL (3.2-5.5); ALBUMIN/GLOBULIN RATIO 1.3 (1.0-2.2); BILIRUBIN,TOTAL 0.5 mg/dL (0.2-1.0); CALCIUM 8.5 mg/dL (8.5-10.3); CREATININE 0.8 mg/dL (0.6-1.2); POTASSIUM 3.9 mmol/L (3.5-5.0); TOTAL PROTEIN 6.9 g/dL (6.7-8.2)
[2021-11-08 12:04] VITALS: BP 162/66
[2021-11-08 12:46] LABS: B. PARAPERTUSSIS- RESP PCR PAN NOT DETECTED; B. PERTUSSIS- RESP PCR PANEL NOT DETECTED; C. PNEUMONIAE- RESP PCR PANEL NOT DETECTED; CORONAVIRUS 229E-RESP PCR NOT DETECTED; CORONAVIRUS HKU1-RESP PCR NOT DETECTED; CORONAVIRUS NL63-RESP PCR NOT DETECTED; CORONAVIRUS OC43-RESP PCR NOT DETECTED; HUMAN METAPNEUMOVIRUS NOT DETECTED; INFLUENZA A- RESP PCR PANEL NOT DETECTED; INFLUENZA B - RESP PCR PANEL NOT DETECTED; M. PNEUMONIAE- RESP PCR PANEL NOT DETECTED; PARAINFLUENZA VIRUS 1 NOT DETECTED; PARAINFLUENZA VIRUS 2 NOT DETECTED; PARAINFLUENZA VIRUS 3 NOT DETECTED; PARAINFLUENZA VIRUS 4 NOT DETECTED; RHINOVIRUS/ENTEROVIRUS NOT DETECTED; RSV- RESP PCR PANEL NOT DETECTED; SARS-CoV-2 -RESP PCR PANEL NOT DETECTED
[2021-11-08 12:51] LABS: BILIRUBIN,URINE NEGATIVE (NEGATIVE); CLARITY,URINE CLEAR (CLEAR); GLUCOSE, URINE (UA) NEGATIVE (NEGATIVE); KETONES,URINE (UA) NEGATIVE (NEGATIVE); LEUKOCYTE ESTERASE, URINE NEGATIVE (NEGATIVE); NITRITE,URINE NEGATIVE (NEGATIVE); OCCULT BLOOD,URINE NEGATIVE (NEGATIVE); PH,URINE 5.5 PH (5.0-7.5); PROTEIN,URINE NEGATIVE (NEGATIVE); UROBILINOGEN,URINE 0.2 (NORMAL) E.U./dL (NORMAL)
[2021-11-08] MEDS ORDERED: MECLIZINE 12.5 MG TABLET PO STA (13:21)
[2021-11-08] MEDS ORDERED: CHERRY SYRUP 10 ML UDC PO ONE (13:28)
[2021-11-08] MEDS ORDERED: DEXAMETHASONE 10 MG/ML VIAL PO STA (13:28)
== END 2021-11-08 13:44 | disposition home or self-care (01) ==
LOC: EDUNIT# → ED 09:57
DX: H83.09 Labyrinthitis, unspecified ear (principal); Z20.822 Contact with and (suspected) exposure to COVID-19
CPT/HCPCS: 36415; 71045; 80053; 81003; 83690; 84484; 85025; 87631; 93005; 99283; 99284; A9270; 0202U; 81001; 87086

== ENCOUNTER 2023-03-17 11:31 | Emergency (ER) | payer MEDICARE, BC, OTHER ==
[2023-03-17 12:11] LABS: BASOPHILS % (AUTO) 0.5 %; EOSINOPHILS # (AUTO) 0.2 10^3/uL (0.0-0.7); EOSINOPHILS % (AUTO) 2.6 %; HCT - HEMATOCRIT 40.6 % (42.0-52.0); HGB - HEMOGLOBIN 13.4 g/dL (14.0-18.0); LYMPHOCYTES # (AUTO) 1.2 10^3/uL (1.5-3.5); LYMPHOCYTES % (AUTO) 15.7 %; MEAN CORPUSCULAR HEMOGLOBIN 30.9 pg (27.0-31.0); MEAN CORPUSCULAR VOLUME 93.8 fL (80.0-94.0); MEAN PLATELET VOLUME 9.3 fL (7.4-11.4); MONOCYTES # (AUTO) 0.5 10^3/uL (0.0-1.0); MONOCYTES % (AUTO) 6.5 %; NEUTROPHILS # (AUTO) 5.8 10^3/uL (1.5-6.6); NEUTROPHILS % (AUTO) 74.4 %; PLT - PLATELET COUNT 235 10^3/uL (130-450); RED BLOOD COUNT 4.33 10^6/uL (4.70-6.10); RED CELL DISTRIBUTION WIDTH 12.3 % (12.0-15.0); WHITE BLOOD COUNT 7.8 x10^3/uL (4.8-10.8)
[2023-03-17 12:23] LABS: ALBUMIN/GLOBULIN RATIO 1.2 (1.0-2.2); BILIRUBIN,TOTAL 0.7 mg/dL (0.2-1.0); CALCIUM 8.7 mg/dL (8.5-10.3); CREATININE 0.8 mg/dL (0.6-1.2); POTASSIUM 4.1 mmol/L (3.5-5.0); TOTAL PROTEIN 7.4 g/dL (6.7-8.2)
--- NOTE | 2023-03-17 12:52 | XRAY Report ---
PROCEDURE: Chest 1 View X-Ray INDICATIONS: Chest pain TECHNIQUE: One view of the chest was acquired. COMPARISON: None. FINDINGS: Surgical changes and devices: None. Lungs and pleura: No pleural effusions or pneumothorax. Lungs are clear. Mediastinum: Mediastinal contours appear normal. Heart size is normal. Bones and chest wall: No suspicious bony lesions. Overlying soft tissues appear unremarkable. IMPRESSION: No acute cardiopulmonary process. Reviewed by: Jf Lara on 03/17/2023 12:51 PM PDT Approved by: Jf Lara on 03/17/2023 12:51 PM PDT Station ID: [id number]
--- NOTE | 2023-03-17 13:48 | ED Physician Documentation ---
History of Present Illness - Stated complaint Stated Complaint: CHEST PX - Chief complaint Chief Complaint: Cardiac - Additonal information Additional information: 73-year-old male presents emergency department for evaluation of chest pain and neck pain. He reports that historically he has intermittent neck pain which he has been told is due to small openings in the spinal canal and nerve roots. He occasionally gets flares of neck pain which resolved after taking aspirin. Over the last 24 to 48 hours he has had a similar neck pain flare but yesterday evening about 8 PM he found pain in his chest. There was no radiation to the arm or jaw. No diaphoresis or nausea. Patient reports that he had chest pain that lasted from 8 PM until about 11 AM this morning. At the time of my evaluation he is free of chest pain and neck pain The patient reports he has intermittently had chest pain through the years and it sounds like he had a Holter monitor placed a year ago for hypotension and bradycardia with no clear etiology seen. Patient denies a history of hypertension, diabetes. He takes timolol eyedrops for glaucoma only. Non-smoker. Rare alcohol use. Review of Systems Constitutional: reports: Reviewed and negative Nose: reports: Reviewed and negative Throat: reports: Reviewed and negative Cardiac: reports: Chest pain / pressure Respiratory: reports: Reviewed and negative GI: reports: Abdominal Pain : reports: Reviewed and negative Musculoskeletal: reports: Neck pain PD PAST MEDICAL HISTORY - Past Medical History Cardiovascular: Murmur Respiratory: Other Neuro: None Endocrine/Autoimmune: None GI: None : None HEENT: Chronic vision loss, Other Psych: Claustrophobia Musculoskeletal: Gout Derm: Other - Past Surgical History Past Surgical History: Yes General: Colonoscopy, Other - Present Medications Home Medications: Ambulatory Orders Medication Instructions Recorded Confirmed Timolol [Betimol] 1 drop EACHEYE DAILY 05/06/16 03/17/23 - Allergies Allergies/Adverse Reactions: Allergies Allergy/AdvReac Type Severity Reaction Status Date / Time bee venom protein (honey bee) Allergy Anaphylaxis Verified 03/17/23 12:00 pollen extracts Allergy Unknown Verified 03/17/23 12:00 - Social History Does the pt smoke?: No Smoking Status: Never smoker Does the pt drink ETOH?: Yes Does the pt have substance abuse?: No - Immunizations Immunizations are current?: Yes PD ED PE NORMAL - General General: Alert and oriented X 3, No acute distress, Well developed/nourished - HEENT HEENT: Atraumatic, Moist mucous membranes - Neck Neck: Supple, no meningeal sign, No adenopathy, Other (Patient has full range of motion of the neck in all planes. No tenderness elicited. No midline tenderness. No rash swelling erythema or ecchymosis.) - Cardiac Cardiac: RRR, No murmur - Respiratory Respiratory: No respiratory distress - Abdomen Abdomen: Normal bowel sounds - Back Back: No CVA TTP - Derm Derm: Normal color, Warm and dry, No rash - Extremities Extremities: No deformity - Neuro Neuro: Alert and oriented X 3, physician/ophthalmologist 2-12 intact Eye Opening: Spontaneous Motor: Obeys Commands Verbal: Oriented GCS Score: 15 Results - Vitals Vitals: Vital Signs - 24 hr 03/17/23 03/17/23 03/17/23 11:37 13:25 13:35 Temperature 36.3 C L 37.7 C Heart Rate 60 60 57 L Respiratory 16 21 14 Rate Blood Pressure 158/73 H 149/65 H 165/72 H O2 Saturation 97 98 98 Oxygen O2 Source Room air - EKG (time done) 1140 EKG releavant findings:: EKG personally interpreted by author of this note. Relevant findings are: Rate: Rate (enter#) (56) Rhythm: NSR Clear: Normal QRS: Low voltage Ischemia: Q waves (V1 V2) Compare to prior EKG: Unchanged from prior EKG Computer interpretation: Agree with computer - Labs Labs: Laboratory Tests 03/17/23 03/17/23 03/17/23 12:08 12:08 12:08 WBC 7.8 RBC 4.33 L Hgb 13.4 L Hct 40.6 L MCV 93.8 MCH 30.9 MCHC 33.0 RDW 12.3 Plt Count 235 MPV 9.3 Neut # (Auto) 5.8 Lymph # (Auto) 1.2 L [place] # (Auto) 0.5 Eos # (Auto) 0.2 Baso # (Auto) 0.0 Absolute Nucleated RBC 0.00 Nucleated RBC % 0.0 Sodium 138 Potassium 4.1 Chloride 103 Carbon Dioxide 29 Anion Gap 6.0 BUN 15 Creatinine 0.8 Estimated GFR (MDRD) 94 Glucose 108 H Calcium 8.7 Total Bilirubin 0.7 AST 18 ALT 19 Alkaline Phosphatase 78 Troponin I High Sens 3.8 Total Protein 7.4 Albumin 4.0 Globulin 3.4 Albumin/Globulin Ratio 1.2 Lipase 36 - Rads (name of study) cxr Relevant Findings:: Final report received (No acute cardiopulmonary process) PD Medical Decision Making - ED course Complexity details: reviewed results, re-evaluated patient, considered differential, d/w patient ED course: 73-year-old male who has no history of hypertension or diabetes presents emergency department for substernal chest pain and pressure that began about 8 PM last night and subsided about 11 this morning. During this event he was also having neck pain which she has had intermittently through the years. He has been told based on previous imaging that he has some narrowing through the spinal canal as well as the nerve roots. On exam the patient is free of neck pain and chest pain. He is alert well- appearing. He has no bradycardia worrisome hypertension. His EKG today per my interpretation is nonischemic. There are Q waves in V1 V2 unchanged from November 2021. We did obtain a CBC and electrolytes as well as a high-sensitivity troponin. Per my interpretation no acute worrisome findings. The troponin was negative despite 8 or more hours of continued pain. Chest x-ray is without findings suggest pneumonia, pneumothorax, pleural effusion or cardiomegaly. Patient is scheduled to follow-up with his primary care provider within the next week or so. I am encouraging him to discuss this ED visit. He would likely benefit from a referral for a stress test. 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 May benefit from referral to a spine physician for further management. Usual emergent return precautions were discussed for worsening symptoms Departure - Departure Disposition: Home, Self Care Clinical Impression: Chest pain Qualifiers: Chest pain type: unspecified Qualified Code(s): R07.9 - Chest pain, unspecified Condition: Stable Record reviewed to determine appropriate education?: Yes Follow-Up: Mark Erickson MD [Primary Care Provider] - Comments: Pietro you are seen today in the emergency department because you developed some chest pain last night across your chest. At this time you are also having some flare of your usual neck pain. In the future when you develop neck pain I encourage you to take 500 mg of Tylenol 2-3 times a day or alternate with 600 mg of ibuprofen. Your EKG completed today shows no changes from the one completed in November 2021. We did obtain CBC, electrolytes and a troponin. Despite 8 or more hours of chest pain your troponin was not elevated. It sounds like in the past you had a Holter monitor for concerns of hypotension and bradycardia. I would encourage you to discuss this ED visit with Dr. Lozano. It is likely appropriate to refer you for a stress test. If at any point you find that your symptoms are worsening, you are severely short of air or have fainting episodes please return immediately to the ER for repeat evaluation
[2023-03-17 14:07] VITALS: BP 151/74
== END 2023-03-17 14:07 | disposition home or self-care (01) ==
LOC: ED 11:31
DX: R07.9 Chest pain, unspecified (principal)
CPT/HCPCS: 36415; 80053; 83690; 84484; 85025; 93005; 99283; 99284

== ENCOUNTER 2023-09-27 08:49 | Outpatient (CLI) | payer MEDICARE, BC, OTHER ==
[2023-09-27 12:19] LABS: BASOPHILS # (AUTO) 0.1 10^3/uL (0.0-0.1); EOSINOPHILS # (AUTO) 0.3 10^3/uL (0.0-0.7); EOSINOPHILS % (AUTO) 6.4 %; HCT - HEMATOCRIT 41.4 % (42.0-52.0); HGB - HEMOGLOBIN 13.3 g/dL (14.0-18.0); LYMPHOCYTES # (AUTO) 1.8 10^3/uL (1.5-3.5); LYMPHOCYTES % (AUTO) 37.2 %; MEAN CORPUSCULAR HEMOGLOBIN 30.7 pg (27.0-31.0); MEAN CORPUSCULAR HGB CONC 32.1 g/dL (32.0-36.0); MEAN CORPUSCULAR VOLUME 95.6 fL (80.0-94.0); MEAN PLATELET VOLUME 9.9 fL (7.4-11.4); MONOCYTES # (AUTO) 0.7 10^3/uL (0.0-1.0); MONOCYTES % (AUTO) 14.8 %; NEUTROPHILS # (AUTO) 1.9 10^3/uL (1.5-6.6); NEUTROPHILS % (AUTO) 40.4 %; PLT - PLATELET COUNT 259 10^3/uL (130-450); RED BLOOD COUNT 4.33 10^6/uL (4.70-6.10); RED CELL DISTRIBUTION WIDTH 12.9 % (12.0-15.0); WHITE BLOOD COUNT 4.8 x10^3/uL (4.8-10.8)
[2023-09-27 12:37] LABS: ALBUMIN 4.2 g/dL (3.2-5.5); ALBUMIN/GLOBULIN RATIO 1.8 (1.0-2.2); ALKALINE PHOSPHATASE 78 IU/L (42-121); ALT ALANINE AMINOTRANSFERASE 26 IU/L (10-60); AST ASPARTATE AMINOTRANSFERASE 21 IU/L (10-42); BILIRUBIN,TOTAL 0.5 mg/dL (0.2-1.0); BUN - BLOOD UREA NITROGEN 18 mg/dL (6-20); CALCIUM 8.9 mg/dL (8.5-10.3); CARBON DIOXIDE - CO2 33 mmol/L (21-32); CHLORIDE 103 mmol/L (101-111); CHOL/HDL RATIO 3.3 (<5.0); CHOLESTEROL 204 mg/dL; CREATININE 0.9 mg/dL (0.6-1.3); GFR - MDRD 82 (>89); GLUCOSE 102 mg/dL (74-104); HDL CHOLESTEROL 61 mg/dL; LDL CHOLESTEROL,CALCULATED 124 mg/dL; POTASSIUM 4.2 mmol/L (3.5-4.5); SODIUM 138 mmol/L (135-145); TOTAL PROTEIN 6.6 g/dL (6.4-8.9); TRIGLYCERIDES 96 mg/dL (48-352); VLDL CHOLESTEROL 19 mg/dL
[2023-09-27 12:47] LABS: THYROID STIMULATING HORMONE 5.07 uIU/mL (0.34-5.60)
== END 2023-09-27 08:50 | disposition home or self-care (01) ==
LOC: LAB.N 08:49
PROVIDERS: ATTEND Family Medicine
DX: E78.5 Hyperlipidemia, unspecified (principal); Z12.5 Encounter for screening for malignant neoplasm of prostate; F41.9 Anxiety disorder, unspecified; J45.909 Unspecified asthma, uncomplicated; M10.9 Gout, unspecified
CPT/HCPCS: 36415; 80053; 80061; 84443; 85025; G0103; 83721; 84153

== ENCOUNTER 2023-10-09 15:29 | Emergency (ER) | payer MEDICARE, BC, OTHER ==
[2023-10-09] MEDS ORDERED: HYDROmorphone 1 MG/ML CARPUJECT IM STA (16:06)
[2023-10-09] MEDS ORDERED: TRIAMCINOLONE 40 MG/ML VIAL MC STA (16:06)
[2023-10-09] MEDS ORDERED: NAPROXEN 250 MG TABLET PO STA (16:07)
--- NOTE | 2023-10-09 16:29 | XRAY Report ---
PROCEDURE: Hip w/Pelvis 2-3V LT INDICATIONS: hip pain worse today TECHNIQUE: AP pelvis with lateral view(s) of the left hip(s). COMPARISON: None. FINDINGS: Bones: No fractures or dislocations. No suspicious bony lesions. Soft tissues: No suspicious soft tissue calcifications or masses. IMPRESSION: No acute bony abnormality. If there remains a high clinical concern for fracture, including inability to bear weight, consider cross-sectional imaging to exclude an occult fracture. No significant degenerative change. Reviewed by: Jf Lara on 10/09/2023 3:28 PM [facility] Approved by: Jf Lara on 10/09/2023 3:28 PM [facility] Station ID: [id number]
--- NOTE | 2023-10-09 17:07 | ED Physician Documentation ---
PD HPI LOWER EXT INJURY - Stated complaint Stated Complaint: HIP PX - Chief complaint Chief Complaint: Ext Problem - History obtained from History obtained from: Patient - History of Present Illness PD HPI LOW EXT INJURY LOCATION: Left, Hip Type of injury: Twist. No: Fall Timing - onset: How many days ago Timing - duration: Days Timing - details: Gradual onset, Still present (onset of left hip and lateral pelvic pain with twisting a few days ago, considerably worsening to where hurts for walking and leg lifting. Pain at inguinal area and also lateral trochanter area. No skin rash. No back pain per se.) Worsened by: Moving, Palpating (at greater trochanter area. Not tender at inguinal area.) Associated symptoms: No: Weakness, Numbness, Swelling Similar symptoms before: No diagnosis (some low back pains at times, but not this area nor consistency.) Recently seen: Not recently seen Review of Systems Constitutional: denies: Fever, Chills Skin: denies: Rash, Lesions Musculoskeletal: denies: Back pain Neurologic: denies: Focal weakness, Numbness PD PAST MEDICAL HISTORY - Past Medical History Past Medical History: Yes Cardiovascular: Hypertension, Murmur Respiratory: Other Neuro: None Endocrine/Autoimmune: None GI: None : None HEENT: Chronic vision loss, Other Psych: Claustrophobia Musculoskeletal: Gout Derm: Other - Past Surgical History Past Surgical History: Yes General: Colonoscopy, Other - Present Medications Home Medications: Ambulatory Orders Medication Instructions Recorded Confirmed Timolol [Betimol] 1 drop EACHEYE DAILY 05/06/16 03/17/23 HYDROcod/ACETAM 5/325 [[place] 5/325] 1 ea PO Q6H PRN #14 tablet 10/09/23 Meloxicam 15 mg PO DAILY 10/09/23 10/09/23 - Allergies Allergies/Adverse Reactions: Allergies Allergy/AdvReac Type Severity Reaction Status Date / Time bee venom protein (honey bee) Allergy Anaphylaxis Verified 10/09/23 15:38 pollen extracts Allergy Unknown Verified 10/09/23 15:38 - Social History Does the pt smoke?: No Smoking Status: Never smoker Does the pt drink ETOH?: Yes Does the pt have substance abuse?: No - Immunizations Immunizations are current?: Yes PD ED PE NORMAL - Vitals Vital signs reviewed: Yes - General General: Alert and oriented X 3, No acute distress, Well developed/nourished - Back Back: No spinal TTP - Derm Derm: Normal color, Warm and dry, No rash - Extremities Extremities: No edema, No calf tenderness / cord, Other (left inguinal area without hernia, adenopathy nor tenderness. Hip not painful with impaction nor rotation passively. Lateral trochanter area tender locally without redness nor swelling. ) - Neuro Neuro: Alert and oriented X 3, No motor deficit, No sensory deficit Results - Vitals Vitals: Oxygen O2 Source Room air - Rads (name of study) left hip Relevant Findings:: Prelim report reviewed (no acute process), EMP independent interpretation of test pelvic CT Relevant Findings:: Prelim report reviewed (no acute process), EMP independent interpretation of test PD Medical Decision Making - ED course Complexity details: reviewed results (xray normal, but has considerable pain in the hip/acetabular area as well at in greater trochanter area. The lateral part seems tendonitis/bursitis. The pelvic part presume muscular, but xray would miss pelvic bony lesions so added CT. This is okay aas well. Presume muscular pain. ), considered differential, d/w patient ED course: local injection at greater trochanter in bursal area with Kenalog 40 mg and Lidocaine 1% - 2 ml. No problems encountered. Departure - Departure Disposition: 01 Home, Self Care Clinical Impression: Strain of left hip, Trochanteric tendinitis of left hip Condition: Stable Record reviewed to determine appropriate education?: Yes Instructions: ED Sprain Hip Follow-Up: Mark Erickson MD [Primary Care Provider] - [facility] [Provider Group] Prescriptions: HYDROcod/ACETAM 5/325 [[place] 5/325] 1 ea PO Q6H PRN #14 tablet PRN Reason: Pain Comments: To my eye I do not see any acute bony or structural abnormalities on your CT of the pelvis. This excludes fractures or bone tumors or other mass lesions. There is some arthritis noted in the lower part of your lumbar spine but no obvious fractures there either. The radiology report is still pending and I will call you if there is any discrepancy on what they see versus my reading. At this point I presume there is some inflammation through the joint and may be some ligament and muscle strain causing the pain with walking and hip movement. There is also some element of inflammation at the greater trochanter where I did the injection. Activity as tolerated. Use the crutches that you have for partial weightbearing if needed. Start the meloxicam prescribed by Dr. Lozano twice daily with food. To that add Tylenol 500 to 650 mg 4 times daily for the next several days to week for pain. Add in alternatively hydrocodone/acetaminophen if needed for worse pain. I sent your prescription to the [facility] pharmacy as requested. Recheck if not improving well over the next few days. You could follow-up with orthopedics as well for other treatment ideas. I am prescribing a short course of narcotic pain medication for you. These are potentially dangerous and addictive medications that should be used carefully. These medications may constipate you. Take an kdei-ioo-tewoelh stool softener such as docusate twice daily with plenty of water while taking these medications. If you go 24 hours without a bowel movement, take aftf-yhm-klewatb MiraLAX, per package instructions. Do not drink or drive while taking these medications. If you received narcotic or sedating medications while in the emergency department do not drive for 24 hours. Store this medication in a safe, secure place and out of reach of children. It is a violation of federal law to give or sell this medication to another person or to use in a manner other than prescribed. The ED will not refill narcotic prescriptions, including prescriptions lost or stolen. You can dispose of unwanted medications at the [facility]'s office or at several pharmacies such as [facility]. Forms: PCP List Discharge Date/Time: 10/09/23 17:29
--- NOTE | 2023-10-09 17:15 | CT Report ---
PROCEDURE: PELVIS WO INDICATIONS: left hip and pelvic pain acute TECHNIQUE: Noncontrast 3 mm axial sections acquired through the bony pelvis, with coronal and sagittal reformatt ing. For radiation dose reduction, the following was used: automated exposure control, adjustment of mA and/or kV according to patient size. COMPARISON: None. FINDINGS: Image quality: Excellent. Bones: No displaced fracture. Degenerative disc disease and degenerative changes of the spiculated j oints and hips. Soft tissues: Fat within the inguinal canals. Colonic diverticulosis without evidence of diverticuli tis. Normal appendix. IMPRESSION: No displaced fracture. Reviewed by: Jf Lara on 10/09/2023 4:13 PM [facility] Approved by: Jf Lara on 10/09/2023 4:13 PM [facility] Station ID: [id number]
[2023-10-09 17:43] VITALS: BP 179/86; O2SAT 98
== END 2023-10-09 17:29 | disposition home or self-care (01) ==
LOC: ED 15:29
DX: S76.012A Strain of muscle, fascia and tendon of left hip, initial encounter (principal); X50.1XXA Overexertion from prolonged static or awkward postures, initial encounter; M70.62 Trochanteric bursitis, left hip; I10 Essential (primary) hypertension; Z79.899 Other long term (current) drug therapy
CPT/HCPCS: 20610; 72192; 73502; 96372; 99284; A9270; J1170

== ENCOUNTER 2024-04-19 15:20 | Outpatient (CLI) | payer MEDICARE, BC, OTHER ==
[2024-04-19 15:40] LABS: INFECTIOUS MONONUCLEOSIS NEGATIVE (Negative)
== END 2024-04-19 15:21 | disposition home or self-care (01) ==
LOC: LAB 15:20
PROVIDERS: ATTEND Family Medicine
DX: J02.9 Acute pharyngitis, unspecified (principal)
CPT/HCPCS: 86308

== ENCOUNTER 2024-07-05 08:20 | Outpatient (CLI) | payer MEDICARE, BC, OTHER ==
[2024-07-05 08:31] LABS: BASOPHILS # (AUTO) 0.1 10^3/uL (0.0-0.1); BASOPHILS % (AUTO) 0.8 %; EOSINOPHILS # (AUTO) 0.3 10^3/uL (0.0-0.7); EOSINOPHILS % (AUTO) 5.6 %; HCT - HEMATOCRIT 42.9 % (42.0-52.0); HGB - HEMOGLOBIN 13.7 g/dL (14.0-18.0); LYMPHOCYTES % (AUTO) 32.6 %; MEAN CORPUSCULAR HEMOGLOBIN 30.4 pg (27.0-31.0); MEAN CORPUSCULAR HGB CONC 31.9 g/dL (32.0-36.0); MEAN CORPUSCULAR VOLUME 95.1 fL (80.0-94.0); MEAN PLATELET VOLUME 9.1 fL (7.4-11.4); MONOCYTES # (AUTO) 0.6 10^3/uL (0.0-1.0); MONOCYTES % (AUTO) 9.3 %; NEUTROPHILS # (AUTO) 3.1 10^3/uL (1.5-6.6); NEUTROPHILS % (AUTO) 51.4 %; PLT - PLATELET COUNT 269 10^3/uL (130-450); RED BLOOD COUNT 4.51 10^6/uL (4.70-6.10); RED CELL DISTRIBUTION WIDTH 12.8 % (12.0-15.0)
[2024-07-05 08:47] LABS: ALBUMIN/GLOBULIN RATIO 1.6 (1.0-2.2); ALKALINE PHOSPHATASE 55 IU/L (42-121); ALT ALANINE AMINOTRANSFERASE 8 IU/L (10-60); AST ASPARTATE AMINOTRANSFERASE 12 IU/L (10-42); BILIRUBIN,TOTAL 0.7 mg/dL (0.2-1.0); BUN - BLOOD UREA NITROGEN 9 mg/dL (6-20); CALCIUM 8.8 mg/dL (8.5-10.3); CARBON DIOXIDE - CO2 31 mmol/L (21-32); CHLORIDE 105 mmol/L (101-111); CREATININE 0.8 mg/dL (0.6-1.3); CRP - C-REACTIVE PROTEIN < 0.5 mg/dL (<0.5); GFR - MDRD 94 (>89); GLUCOSE 114 mg/dL (74-104); POTASSIUM 4.1 mmol/L (3.5-4.5); SODIUM 139 mmol/L (135-145); TOTAL PROTEIN 6.5 g/dL (6.4-8.9)
[2024-07-05 09:01] LABS: THYROID STIMULATING HORMONE 4.24 uIU/mL (0.34-5.60)
== END 2024-07-05 08:21 | disposition home or self-care (01) ==
LOC: LAB 08:20
PROVIDERS: ATTEND Family Medicine
DX: J02.9 Acute pharyngitis, unspecified (principal); R63.4 Abnormal weight loss; R43.2 Parageusia
CPT/HCPCS: 36415; 80053; 84443; 85025; 85651; 86140

== ENCOUNTER 2024-07-22 15:29 | Outpatient (CLI) | payer MEDICARE, BC, OTHER ==
[~2024-07-22 15:29] MED LIST: GADOTERATE MEGLUMINE 10 MMOL/20 ML VIAL ONE
[2024-07-22] MEDS ORDERED: GADOTERATE MEGLUMINE 10 MMOL/20 ML VIAL ONE (15:56)
[2024-07-22] MEDS: GADOTERATE MEGLUMINE 10 MMOL/20 ML VIAL IVP ONE (17:05)
--- NOTE | 2024-07-25 14:35 | MRI Report ---
PROCEDURE: Soft Tissue Neck W/WO INDICATIONS: PHARYNGEAL CELLULITIS CONTRAST: clariscan 17.2 ml TECHNIQUE: Sagittal/axial/coronal T1 spin echo and STIR. After the administration of contrast, axial/coronal/sa gittal T1 fast spin echo with fat saturation through the neck. COMPARISON: No prior exams are available. FINDINGS: Image quality: Excellent. Lymph nodes: No enlarged nodes are seen throughout the neck. Vessels: Visualized vasculature appears normal, with asad flow voids and enhancement. Neck spaces: The oropharynx, nasopharynx and pharynx are unremarkable, without mucosal lesions seen. Vocal cords, false vocal cords, pyriform sinuses, epiglottis, vallecula, and tongue base all appear normal. Extramucosal spaces of the neck also appear unremarkable. Glands: The parotid and submandibular glands appear normal. The thyroid is normal in size and there are no incidental findings. Miscellaneous: Visualized brain and orbits appear normal. Lung apices appear clear. Superficial so ft tissues appear normal. Visualized sinuses and mastoids appear clear. Bones: Marrow has normal overall signal. IMPRESSION: Unremarkable MRI of the neck with and without contrast. If clinical concern persists, consider follow -up CT neck with contrast for further evaluation Reviewed by: Xander Stanley MD on 07/25/2024 1:34 PM [facility] Approved by: Xander Stanley MD on 07/25/2024 1:34 PM [facility] Station ID: [id number]
== END 2024-07-22 15:30 | disposition home or self-care (01) ==
LOC: DI 15:29
PROVIDERS: ATTEND Family Medicine
DX: J39.1 Other abscess of pharynx (principal); R63.4 Abnormal weight loss; R43.2 Parageusia
CPT/HCPCS: 70543; A9575